=== PATIENT | male | born 1985 | race African-American/Black ===

== ENCOUNTER 2020-04-25 09:01 | Emergency (ER) | payer MEDICAID, OTHER ==
[~2020-04-25] VITALS: Ht 180.3 cm; Wt 163.6 kg
[~2020-04-25 09:01] MED LIST: ALPR0.255 PO; IBUP-2077 PO
[2020-04-25] MEDS ORDERED: ACET-2247 PO (09:06)
[2020-04-25] MEDS ORDERED: ACETAMINOPHEN 500 MG TABLET PO ONE (09:30)
[2020-04-25 10:30] VITALS: BP 128/87
== END 2020-04-25 11:18 | disposition home or self-care (01) ==
LOC: EMS 09:06
DX: Z20.822 Contact with and (suspected) exposure to COVID-19 (principal); F41.9 Anxiety disorder, unspecified
CPT/HCPCS: 71045; 99284; U0003

== ENCOUNTER 2023-03-13 07:49 | Emergency (ER) | payer MEDICAID, OTHER ==
[~2023-03-13] VITALS: Ht 177.8 cm; Wt 159.1 kg
[~2023-03-13 07:49] MED LIST changes: +ACET-2247 PO; -ALPR0.255 PO; -IBUP-2077 PO
[2023-03-13 07:56] VITALS: TEMP 98.5
[2023-03-13] MEDS ORDERED: OXYM15SP57 NASAL (08:56)
[2023-03-13 09:29] VITALS: BP 128/82; PULSE 75; RESP 15
== END 2023-03-13 09:32 | disposition home or self-care (01) ==
LOC: EMS 07:54
DX: R04.0 Epistaxis (principal); J06.9 Acute upper respiratory infection, unspecified; F41.9 Anxiety disorder, unspecified
CPT/HCPCS: 99282; Z7502